=== PATIENT | male | born 1945 | race African-American/Black ===

== ENCOUNTER 2019-01-16 13:30 | Inpatient (IN) | payer MEDICARE, MEDICAID ==
[2019-01-16] MEDS ORDERED: Benzocaine 20% Spray 60 ML CAN ONE (14:26)
[2019-01-16] MEDS ORDERED: Lorazepam 2 MG/ML VIAL ONE (14:58)
[2019-01-16 15:02] LABS: Bacteria/HPF 4+ HPF (None Seen); Bilirubin Negative (Negative); Blood, Urine 1+ (Negative); Clarity Turbid (Clear); Glucose, Urine (Dipstick) Normal (Negative); Leukocyte 75 Leu/uL (Negative); Nitrite Negative (Negative); Protein, Urine (Dipstick) 30 mg/dL (Neg-Trace); RBC/HPF 21-50 HPF (0-3); Squamous Epithelial 0-3 HPF (0-3); Transitional Epithelial 0-3 HPF (None Seen); Urobilinogen Normal mg/dL (Less than 2); WBC/HPF 21-50 HPF (0-3)
[2019-01-16 18:15] VITALS: BMI 18.8
[2019-01-16] MEDS ORDERED: Ondansetron ODT 4 MG TAB SL PRN (18:24)
[2019-01-16] MEDS ORDERED: Ondansetron PF 4 MG/2 ML Vial IVP PRN (18:24)
[2019-01-16] MEDS ORDERED: Dextrose 5 %-0.45 % NaCl 1,000 ML IV SCH (18:30)
[2019-01-16] MEDS ORDERED: Dextrose 50% Abboject 50 ML SYRINGE SLOW IVP PRN (19:44)
[2019-01-16] MEDS ORDERED: Dextrose 5% in Water 1,000 ML IV PRN (19:44)
[2019-01-16] MEDS ORDERED: Acetaminophen 325 MG TAB PO PRN (19:46)
[2019-01-16] MEDS ORDERED: Ondansetron ODT 4 MG TAB PO PRN (19:46)
[2019-01-16] MEDS ORDERED: Enalaprilat Dihydrate 1.25 MG/ML VIAL SLOW IVP PRN (19:48)
[2019-01-16] MEDS ORDERED: cefTRIAXone\\ROCEPHIN 1 GM in Sodium Chloride 0.9% 100 ML IVPB SCH (21:00)
[2019-01-16] MEDS: Dextrose 5 % And 0.9 % NaCl 1,000 ML IV SCH (21:49)
--- NOTE | 2019-01-17 03:04 | HP ---
PRIMARY CARE PHYSICIAN: Dr. Laws in [place], [place]. CHIEF COMPLAINT/REASON FOR ADMISSION: Nausea/vomiting/hypoglycemia. HISTORY OF PRESENT ILLNESS: Mr. Boswell is a 73-year-old gentleman, presenting in transfer from [facility], with chief medical issues of hypoglycemia, in the context of nausea/vomiting/ileus. History is taken from the patient's surrogate medical decision maker and power of journey lineman, his sister, Babita Boswell. The patient himself has lifelong mental restriction, is unable to read or write, has been cared for by his family in his home throughout his life. He has a medical history of type 2 diabetes, benign prostatic hypertrophy, gout, peripheral vascular disease, dyslipidemia, and hypertension. Acute symptoms began a few days ago, when Mr. Boswell developed some mild nausea with occasional vomiting. He has continued to have bowel movements throughout the course, with a normal bowel movement occurring today in [place], in fact. His appetite has been decreased, he has not been eating well. He has, however, continued to take his home medications which include sulfonylurea, glipizide 10 mg p.o. once daily. He was brought to the hospital by his family due to low blood sugar noted at home. Blood sugar in [place] noted to be 29. Prior imaging done at an outside facility earlier this morning included CT scan of the abdomen and pelvis with IV contrast. Findings include wall thickening involving distal gastric body and proximal duodenum, possible gastroenteritis, large hiatal hernia, gaseous distention of colon may reflect colonic ileus, dilatation of bladder suspicious for bladder outlet obstruction, small bilateral pleural effusions, right nephrolithiasis. Plain x-rays were also performed as part of an acute abdominal series, showing diffuse gaseous distention of the bowel, abdomen, and pelvis, possibly secondary to adynamic ileus. The patient was subsequently given fluid support for hypoglycemia, transferred for additional evaluation and care. In the emergency department, NG tube placed, with 300 mL of gastric contents removed. Subsequently, the patient discontinued NG tube, unable to tolerate. PAST MEDICAL HISTORY: 1. Memory restriction/mental retardation. 2. Type 2 diabetes. 3. Benign prostatic hypertrophy. 4. Gout. 5. Peripheral vascular disease. 6. Dyslipidemia. 7. Essential hypertension. PAST SURGICAL HISTORY: Reviewed, negative. ALLERGIES: NONE. HOME MEDICATIONS: 1. Metformin 1000 mg p.o. twice daily. 2. Oxybutynin 5 mg p.o. twice daily. 3. Allopurinol 300 mg p.o. once daily. 4. Glipizide 10 mg p.o. once daily. 5. Lisinopril 5 mg p.o. once daily. 6. Flomax 0.4 mg p.o. at bedtime. 7. Furosemide 40 mg p.o. once daily. 8. Atorvastatin 40 mg p.o. once daily. FAMILY HISTORY: Mother of complications of diabetes at age 60. Father is , reason unknown. SOCIAL HISTORY: Mr. Boswell uses chewing tobacco. Does not use alcohol. No illicit drug use. He lives at home, cared for by his sister. REVIEW OF SYSTEMS: Full review of systems reviewed/addressed/negative except otherwise as mentioned. Notably, no reported change in stool, generally stool is soft, using MiraLAX at home on occasion. Also sister notes abdomen is chronically distended, which is his baseline. PHYSICAL EXAMINATION: VITAL SIGNS: Blood pressure 109/54, heart rate 80, respiratory rate 20, saturating 98% on room air. VITAL SIGNS: On the floor, blood pressure 121/76, temperature 98 degrees, pulse 91, respiratory rate 17, saturating 100% on room air. GENERAL: This is an elderly gentleman, somewhat sleepy at the time of my evaluation, sister at the bedside, able to augment his history. HEENT: Eyes are notable for muddy sclera, pupils reactive bilaterally. Oropharynx edentulous. NECK: Supple. Full range of motion. HEART: Regular rate and rhythm without distinct murmur. LUNGS: Clear bilaterally. ABDOMEN: Moderately protuberant, sister states this is essentially his baseline. Bowel sounds are present. He is nontender on palpation. EXTREMITIES: With 1+ bilateral lower extremity edema. Muscle tone is generally decreased diffusely. NEUROLOGIC: He is able to follow simple commands, able to say his first name. He is not oriented to situation, time, or place. At baseline, he is able to assist with transfers from bed to wheelchair or scooter, does not walk independently. SKIN: Without any skin rash or skin changes over the soles of his feet, have some hyperpigmentation present. LABORATORY/DATA REVIEW: Glucose most recently is 78. Urine analysis was performed showing red blood cells, white blood cells, and the presence of bacteria. White blood cell count 9.7, hemoglobin 10.5, hematocrit 32.6, platelet count 276. INR 1.3. Serum sodium 134. Glucose 166 on these labs from 9:20 a.m. at the transferring facility. IMAGING STUDIES: I have reviewed abdomen/pelvis CT performed with IV contrast, wall thickening distal gastric body, hiatal hernia, gaseous distention of colon, dilatation of bladder, small bilateral pleural effusion, right nephrolithiasis. Plain x-ray is notable for colonic distention. Case discussed by phone with Dr. Owens from the emergency department. IMPRESSION: 1. Adynamic ileus, likely secondary to recent gastroenteritis, status post decompression. 2. Benign prostatic hypertrophy. 3. Essential hypertension. 4. Type 2 diabetes, with presence of sulfonylurea and consequent hypoglycemia in the context of poor oral intake in the setting of acute illness. PLAN/RECOMMENDATIONS: 1. GI-gastric decompression, bowel rest. Trial of clear liquids in the morning should nausea/vomiting continue to show interval improvement. Not obstructed, passing gas, bowel movements today in [place], encourage out of bed/activities to help promote bowel function. Check morning electrolytes/replete as necessary. 2. Endocrine-hypoglycemia in the phase of poor oral intake and ongoing use of sulfonylurea. D5 NS 75 mL/hour overnight, q.2 hourly Accu-Cheks, once stable, can transition to before meals and at bedtime. Home metformin presently on hold. Home glipizide on hold. 3. Bladder scan to rule out bladder outlet obstruction. 4. Hold home medications at this time, due to recent nausea/vomiting. These may be resumed as condition improves. 5. Code status. I discussed code status with the patient's sister and surrogate medical decision maker, Babita. He is full code. She will remain with him in the hospital, particularly as he is not able to read or write, which could certainly be a communication barrier. Questions answered. The patient's condition is high risk based on comorbidities on presentation. Job ID: [id number]
[2019-01-17 06:09] LABS: #Lymphocytes 1.8 thou/uL (1.20-3.40); #Monocytes 0.5 thou/uL (0.11-0.59); #Neutrophils 4.3 thou/uL (1.40-6.50); %Basophils 0.1 % (0.0-1.0); %Eosinophils 0.6 % (0.0-10.0); %Lymphocytes 27.2 % (21.0-51.0); %Monocytes 6.8 % (0.0-10.0); %Neutrophils 65.2 % (42.0-75.0); Hemoglobin 9.2 g/dL (14.0-18.0); Mean Corpuscular HGB CONC 32.3 g/dL (32.0-36.0); Mean Corpuscular Hemoglobin 29.6 pg (27.0-31.0); Mean Corpuscular Volume 91.8 fL (78.0-98.0); Mean Platelet Volume 7.6 fL (7.4-10.4); Platelet Count 264 thou/uL (130-400); RBC Distribution Width 15.6 % (11.5-14.5); Red Blood Cell (RBC) Count 3.11 mill/uL (4.70-6.10); White Blood Cell (WBC) Count 6.6 thou/uL (4.8-10.8)
[2019-01-17 06:34] LABS: Anion Gap 13 mmol/L (10-20); BUN (Urea Nitrogen) 13 mg/dL (8.4-25.7); Calc. Creatinine Clearance 66 mL/min (70-130); Calcium 8.3 mg/dL (7.8-10.44); Carbon Dioxide 22 mmol/L (23-31); Chloride 108 mmol/L (98-107); Estimated GFR-MDRD Greater than 90; Glucose 94 mg/dL (83-110); Potassium 4.3 mmol/L (3.5-5.1); Sodium 139 mmol/L (136-145)
[2019-01-17] MEDS ORDERED: Enoxaparin Sodium 40 MG/0.4 ML SYRINGE SC SCH (09:00)
[2019-01-17] MEDS ORDERED: Prevnar 13-Val Conj/PF 0.5 ML SYRINGE IM ONE (09:00)
[2019-01-17] MEDS: Dextrose 5 % And 0.9 % NaCl 1,000 ML IV SCH (10:21)
[2019-01-17 11:05] VITALS: BP 159/93; TEMP 98.2
--- NOTE | 2019-01-17 18:52 | DIS ---
DATE OF ADMISSION: 01/16/2019 DATE OF DISCHARGE: 01/17/2019 REASON FOR HOSPITALIZATION: Symptomatic hypoglycemia. SIGNIFICANT FINDINGS: The patient with blood sugar in the field of 29, on sulfonylurea medication, glipizide as a home medication. TREATMENTS RENDERED: The patient was stopped on glipizide, serial glucose exam with Accu-Chek. The patient was also found to have urinary tract infection and was placed on oral antibiotics. CONDITION ON DISCHARGE: Stable. SPECIFIC INSTRUCTIONS FOR THE PATIENT OR FAMILY: 1. The patient is take all medications as outlined, to be re-evaluated by primary care physician in the next 5 to 7 days. 2. The patient is to stop glipizide completely. 3. The patient is to have small frequent meals to avoid hypoglycemic episodes. 4. The patient with chronic constipation was recommended twice daily stool softener to avoid ileus/constipation. HOSPITAL COURSE: Mr. Boswell is a 73-year-old gentleman, who was transferred from [facility] with chief complaint of symptomatic hypoglycemia. The patient with nausea and vomiting. The patient underwent CT scan of the abdomen that did show some mild inflammatory changes of the colon consistent with ileus. The patient did have several bowel movements since initial CAT scan and the patient's ileus has resolved. The patient had initially been placed on D5 NS and q.2 Accu-Cheks, which demonstrated that the patient's blood sugars normalized as glipizide wore off his system. I recommended to the patient that glipizide be stopped permanently to his vp legal affairs, Babita Boswell, who was at bedside during my time of history and physical. With regard to the patient's abdomen, it is soft, nontender, and nondistended at the time of discharge. The patient has moved his bowels several times. The patient's vp legal affairs, Babita does endorse that he is chronically constipated. I recommended to Babita that the patient be started on daily stool softener therapy and that a rare dose of laxative medications to keep his bowel regimen more regular would be recommended. The patient with abnormal urinalysis initially placed on IV antibiotics, was transitioned to oral antibiotics. The patient with normal WBC count of 6.6. The patient is afebrile since admission. The patient will have followup on final culture from urine in the primary care physician's clinic in the next 5 to 7 days. The patient is recommended to take all medications as outlined, to be re-evaluated by primary care physician this week. The patient recommended to stop glipizide completely. The patient recommended small frequent meals. The patient recommended to be on a good bowel regimen to avoid constipation. Greater than 39 minutes spent coordinating care and discharge process. Job ID: [id number] [id number]
== END 2019-01-17 11:54 | disposition home or self-care (01) | DRG 638 ==
LOC: ERS 13:30 → T4-A 14:40
PROVIDERS: ADMIT Internal Medicine; ATTEND Internal Medicine
DX: E11.649 Type 2 diabetes mellitus with hypoglycemia without coma (principal); K56.0 Paralytic ileus; N39.0 Urinary tract infection, site not specified; N40.0 Benign prostatic hyperplasia without lower urinary tract symptoms; M10.9 Gout, unspecified; K59.09 Other constipation; E11.51 Type 2 diabetes mellitus with diabetic peripheral angiopathy without gangrene; E78.5 Hyperlipidemia, unspecified; I10 Essential (primary) hypertension; Z79.899 Other long term (current) drug therapy; Z79.84 Long term (current) use of oral hypoglycemic drugs
CPT/HCPCS: 36415; 36416; 51701; 80048; 81003; 81015; 85025; 87077; 87086; 87186; 96374; J0696; J1650; J2060; J3490